=== PATIENT | male | born 1960 | race Caucasian/White ===

== ENCOUNTER → 2022-03-19 11:53 | Outpatient (REF) | payer MEDICARE, SELFPAY ==
--- NOTE | 2022-03-19 12:07 | CA_ITS ---
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 The visually estimated ejection fraction is between 55-60%. - There is no evidence of interatrial shunt by agitated saline. - No obvious valvular pathology seen on this study. - There is mild dilatation of the ascending aorta measuring 4.00 cm. Findings Left Ventricle Normal left ventricular cavity size. There is mildly increased left ventricular wall thickness. The left ventricular systolic function is normal. The visually estimated ejection fraction is between 55-60%. E/E prime ratio is >15, consistent with elevated filling pressures. Evidence suggests grade I (mild) diastolic dysfunction. There is moderate septal and moderate basal asymmetric hypertrophy. Right Ventricle Normal right ventricular cavity size and systolic function. Atria Both atria are normal in size. There is no evidence of interatrial shunt by agitated saline. (rest and valsalva). Aortic Valve The aortic valve was not well visualized. There is no aortic valve stenosis. There is no aortic valve regurgitation. Mitral Valve The mitral valve appears normal. There is trace mitral valve regurgitation. There is no mitral valve stenosis. Pulmonic Valve The pulmonic valve is likely normal. Tricuspid Valve There is trace tricuspid valve regurgitation. The pulmonary artery systolic pressure is normal. Great Vessels There is mild dilatation of the ascending aorta measuring 4.00 cm. Venous The inferior vena cava was not well visualized. The inferior vena cava is normal in size. Pericardium/Pleural There is no evidence of pericardial effusion. Prior Study Comparison No prior study available for comparison. Recommendations, Care & Conclusions No obvious valvular pathology seen on this study. Measurements 2D Linear Measurements IVSd: 1.35 0.6-0.9/0.6-1.0 cm LVIDd: 5.38 3.9-5.3/4.2-5.9 cm LVIDd Index: 2.11 2.4-3.2/2.2-3.1 cm/m2 LVIDs: 3.38 2.0-3.6 cm LVPWd: 1.35 0.7-1.1 cm LA Diam: 5.00 2.7-3.8/3.0-4.0 cm LAIDs Index: 1.96 1.5-2.3 cm/m2 LV Mass: 386.66 67-162/88-224 g LV Mass Index: 151.63 43-95/49-115 g/m2 LVOT Diam: 2.50 3.0+(-)1.3 cm 2D Systolic Function EF 4C: 52.00 >55% EF 2C: 57.90 >55% EF BiP: 54.70 >55% Mitral Valve MV Pk E: 0.75 MV PK A: 0.77 MV Decel Time: 276.00 E/A: 1.00 E'Lateral: 4.57 E'Medial: 4.68 E/E' Med: 16.10 E/E' Lat: 16.50 PHT: 81.00 MVA PHT: 2.72 Decel Conecuh: 2.73 Aortic Valve AoV Pk Ab: 1.51 AoV Mn Ab: 1.06 AoV VTI: 0.33 AoV Pk Grad: 9.00 Aov Mn Grad: 5.00 NASEEM Cont.VTI: 3.53 LVOT LVOT Pk Ab: 1.03 LVOT Mn Ab: 0.67 LVOT VTI: 0.24 LVOT Pk Grad: 4.00 LVOT Mn Grad: 2.00 LVOT Diam: 2.50 LVOT Area: 4.91 Diastolic Function MV Pk E: 0.75 MV Pk A: 0.77 E/A: 1.00 E'Medial: 4.68 E/E' Med: 16.10 E' Laterial: 4.57 E/E' Lat: 16.50 Right Ventricle TAPSE (mm): 19.80 TVS' Ab: 11.70 Tricuspid Valve TR Pk Ab: 1.94 TR Pk Grad: 15.00 RA Press: 15.00 RVSP: 30.00 Great Vessels Aorta Sinus of Valsalva: 3.67 2.0-3.5 cm Ao Asc: 4.00 2.1-3.4 cm Updated in Other Vendor System with Status of Final Cecil Burdick MD electronically signed on 03/20/2022 2:02:04 PM with status of Final
== END ==
LOC: HO.CARD 11:53
PROVIDERS: Visit Provider Internal Medicine
DX: J96.21 Acute and chronic respiratory failure with hypoxia (principal)
CPT/HCPCS: 93306